=== PATIENT | female | born 1960 | race Two or more races ===

== ENCOUNTER 2018-08-22 14:20 | Emergency (ER) | payer OTHER | END 2018-08-22 15:35 | disposition home or self-care (01) | LOC: FTE 14:20 | DX: H66.90 Otitis media, unspecified, unspecified ear (principal); R51 Headache; J45.909 Unspecified asthma, uncomplicated | CPT/HCPCS: 99283; Z7502 ==

== ENCOUNTER 2019-03-10 13:35 | Emergency (ER) | payer OTHER ==
[2019-03-10 16:08] LABS: ADD MAN DIFF? NO
[2019-03-10 16:10] LABS: WHITE BLOOD COUNT 7.4 10^3/ul (4.8-10.8)
[2019-03-10 16:10] LABS: BASOPHILS % 0.4 % (0.0-2.0); EOSINOPHILS # 0.3 10^3/ul (0.0-0.5); EOSINOPHILS % 3.6 % (0.0-7.0); HEMATOCRIT 41.3 % (37.0-47.0); HEMOGLOBIN 13.6 g/dl (12.0-16.0); LYMPHOCYTES # 2.6 10^3/ul (0.8-2.9); LYMPHOCYTES % 34.9 % (15.0-51.0); MEAN CORPUSCULAR HEMOGLOBIN 28.5 pg (29.0-33.0); MEAN CORPUSCULAR HGB CONC 32.9 g/dl (32.0-37.0); MEAN CORPUSCULAR VOLUME 86.6 fl (82.0-101.0); MONOCYTE # 0.5 10^3/ul (0.3-0.9); MONOCYTES % 6.8 % (0.0-11.0); NEUTROPHILS % 53.8 % (39.0-77.0); PLATELET COUNT 231 10^3/UL (140-415); RED BLOOD COUNT 4.77 10^6/ul (4.20-5.40); RED CELL DISTRIBUTION WIDTH 12.8 % (11.5-14.5)
[2019-03-10 16:13] LABS: ADD UMIC YES; UR ASCORBIC ACID NEGATIVE (NEGATIVE); UR BILIRUBIN (Dip) NEGATIVE (NEGATIVE); UR BLOOD (Dip) NEGATIVE (NEGATIVE); UR CLARITY CLEAR (CLEAR); UR COLOR YELLOW (YELLOW); UR GLUCOSE (Dip) NEGATIVE (NEGATIVE); UR KETONES (Dip) NEGATIVE (NEGATIVE); UR LEUKOCYTE ESTERASE (Dip) TRACE Leu/ul (NEGATIVE); UR MUCUS FEW /HPF (NONE SEEN); UR NITRITE (Dip) NEGATIVE (NEGATIVE); UR RBC 1 /HPF (0-5); UR SPECIFIC GRAVITY (Dip) 1.023 (1.003-1.030); UR TOTAL PROTEIN (Dip) NEGATIVE (NEGATIVE); UR UROBILINOGEN (Dip) NEGATIVE (NEGATIVE); UR WBC 2 /HPF (0-5)
[2019-03-10] MEDS: DEXAMETHASONE 10 MG/ML 1 ML INJ IM (16:23)
[2019-03-10] MEDS: CYCLOBENZAPRINE 10 MG TAB PO (16:23)
[2019-03-10] MEDS: KETOROLAC 30 MG INJ IV (16:23)
[2019-03-10] MEDS: SOD CHLORIDE 0.9% 1,000 ML IV (16:24)
[2019-03-10 16:42] LABS: ALANINE AMINOTRANSFERASE 44 IU/L (13-69); ALBUMIN 4.5 g/dl (3.3-4.9); ALKALINE PHOSPHATASE 96 IU/L (42-121); ANION GAP 9 (5-13); ASPARTATE AMINO TRANSFERASE 29 IU/L (15-46); BILIRUBIN,INDIRECT 0.5 mg/dl (0-1.1); BILIRUBIN,TOTAL 0.5 mg/dl (0.2-1.3); BLOOD UREA NITROGEN 18 mg/dl (7-20); CALCIUM 9.5 mg/dl (8.4-10.2); CARBON DIOXIDE 27 mmol/L (21-31); CHLORIDE 106 mmol/L (97-110); Estimated GFR > 60 mL/min (>60); GLUCOSE 98 mg/dl (70-220); LIPASE 87 U/L (23-300); POTASSIUM 3.6 mmol/L (3.5-5.1); SODIUM 142 mmol/L (135-144); TOTAL PROTEIN 7.7 g/dl (6.1-8.1)
== END 2019-03-10 19:17 | disposition home or self-care (01) ==
LOC: FTE 13:35
DX: J32.9 Chronic sinusitis, unspecified (principal); R10.11 Right upper quadrant pain; R30.0 Dysuria; J45.909 Unspecified asthma, uncomplicated
CPT/HCPCS: 36415; 76705; 80053; 81001; 83690; 85025; 87086; 96372; 96374; 99285-25

== ENCOUNTER 2019-04-21 14:06 | Emergency (ER) | payer OTHER ==
[2019-04-21] MEDS: IBUPROFEN 600 MG TAB PO (15:40)
[2019-04-21] MEDS: LORAZEPAM 0.5 MG TAB PO (15:40)
== END 2019-04-21 17:41 | disposition home or self-care (01) ==
LOC: FTE 14:06
DX: J32.9 Chronic sinusitis, unspecified (principal); F41.9 Anxiety disorder, unspecified
CPT/HCPCS: 70450; 70486; 99284-25

== ENCOUNTER 2019-05-17 14:35 | Emergency (ER) | payer OTHER ==
[2019-05-17] MEDS: DIPHENHYDRAMINE 50 MG CAP PO (15:40)
[2019-05-17] MEDS: FAMOTIDINE 20 MG TAB PO (15:40)
[2019-05-17] MEDS: DEXAMETHASONE 10 MG/ML 1 ML INJ IM (15:41)
[2019-05-17] MEDS: KETOROLAC 30 MG INJ IM (15:41)
[2019-05-17] MEDS: LIDOCAINE 2% (MDV) 20 ML INJ INJ (16:00)
[2019-05-17] MEDS ORDERED: BACITRACIN 0.9 GM OINT TOP (16:30)
[2019-05-17] MEDS: BACITRACIN 0.5%/ZINC 28.35 GM OINT TOP (16:56)
== END 2019-05-17 17:03 | disposition home or self-care (01) ==
LOC: FTE 14:35
DX: S50.862A Insect bite (nonvenomous) of left forearm, initial encounter (principal); J45.909 Unspecified asthma, uncomplicated; L02.412 Cutaneous abscess of left axilla; W57.XXXA Bitten or stung by nonvenomous insect and other nonvenomous arthropods, initial encounter; Y92.9 Unspecified place or not applicable
CPT/HCPCS: 10060; 96372; 99284-25

== ENCOUNTER 2019-05-19 13:32 | Emergency (ER) | payer OTHER | END 2019-05-19 14:28 | disposition home or self-care (01) | LOC: E/R 14:28 | DX: Z48.01 Encounter for change or removal of surgical wound dressing (principal); J45.909 Unspecified asthma, uncomplicated | CPT/HCPCS: 99281 ==